=== PATIENT | female | born 1950 | race African-American/Black ===

== ENCOUNTER → 2022-09-01 | Outpatient (CLI) | payer MEDICARE, MEDICAID ==
[~2022-09-01] MED LIST: AMIT25TA9 PO; ATEN-42 PO; ATOR40TA70 PO; CILO50TA10 PO; DOCU-138 PO; EZET10TA13 PO; GABA300S PO; HYDR-3513 PO; LEVO75TA PO; LEVPEN SQ; LORA-249 PO; LORA10TA7 PO; METO-293 PO; OLME1TAB11 PO; OMEP40CA20 PO; flexeril PO; proair
== END | disposition home or self-care (01) ==
LOC: MRI 08:28
PROVIDERS: ATTEND Neurological Surgery
DX: M47.812 Spondylosis without myelopathy or radiculopathy, cervical region (principal); M25.78 Osteophyte, vertebrae; M50.21 Other cervical disc displacement, high cervical region; M48.02 Spinal stenosis, cervical region
CPT/HCPCS: 72141